=== PATIENT | male | born 1960 | race Caucasian/White ===

== ENCOUNTER 2020-10-07 10:59 | Day surgery (SDC) | payer OTHER ==
[~2020-10-07 10:59] MED LIST: BUPIVACAINE/PF (0.25%) 2.5 MG/ML 30 ML VIAL INFILTRATI ONE; LACTATED RINGERS 1,000 ML IV SCH; LIDOCAINE (1%) 10 MG/1 ML VIAL 20 ML MDV ONE; MIDAZOLAM 2 MG/2 ML INJ IV NR
[2020-10-07 11:49] VITALS: BP 127/79
[2020-10-07] MEDS ORDERED: BUPIVACAINE/PF (0.25%) 2.5 MG/ML 30 ML VIAL INFILTRATI ONE (12:22)
[2020-10-07] MEDS ORDERED: LIDOCAINE (1%) 10 MG/1 ML VIAL 20 ML MDV INFILTRATI ONE (12:22)
--- NOTE | 2020-10-08 10:21 | Procedure Note ---
Date of procedure: 10/07/20 Pre-op diagnosis: epidermal inclusion cyst of scalp Post-op diagnosis: same Procedure: excision of epidermal inclusion cyst of scalp Findings: Patient identified in the preoperative area and taken back to the minor procedure room. He was placed on the stretcher in the lateral decubitus position with right side up. The epidermal inclusion cyst was visualized on the scalp and the area prepped and draped in usual sterile fashion. A timeout was performed. Local anesthetic was infiltrated into skin at intended incision site. An elliptical incision was made around the area using 15 blade. Dissection was carried down through skin and subcutaneous tissue using a 15 blade until the cyst was encountered. This was circumferentially dissected free from the underlying and surrounding tissue using dissection with a scalpel until it was completely excised. This was measured at 1 cm. It had the gross characteristics of an epidermal inclusion cyst. The wound was irrigated and hemostasis ensured. The wound was closed in layered fashion with deep layer approximated using 3-0 vicryl interrupted stitches and skin with 4-0 monocryl. Skin glue applied. Pt tolerated the procedure well. All sponge, instrument, sharp counts were correct x2 at the end of the case. The patient was discharged home in stable condition with discharge instructions. Anesthesia: local Surgeon: DEVON PALMA Estimated blood loss: minimal Pathology: list (cyst of scalp) Specimen disposition: to lab Condition: stable Disposition: other (home)
== END 2020-10-07 11:00 | disposition home or self-care (01) ==
LOC: OR 10:59
PROVIDERS: ATTEND Surgery
DX: L72.0 Epidermal cyst (principal); E78.00 Pure hypercholesterolemia, unspecified; E11.9 Type 2 diabetes mellitus without complications; M19.90 Unspecified osteoarthritis, unspecified site; Z98.890 Other specified postprocedural states; Z79.899 Other long term (current) drug therapy
CPT/HCPCS: 82962; 88304